=== PATIENT | female | born 1955 | race Caucasian/White ===

== ENCOUNTER 2017-01-23 04:18 | Emergency (ER) | payer OTHER ==
[~2017-01-23] VITALS: Ht 162.6 cm; Wt 65.0 kg
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
[2017-01-23 05:25] LABS: ALT (GPT) 25 U/L (10-53); ANION GAP 7 MEQ/L (5-15); AST (GOT) 23 U/L (15-37); BICARBONATE 27.9 MEQ/L (21.0-32.0); BLOOD UREA NITROGEN 10 MG/DL (7-18); CHLORIDE 110 MEQ/L (98-107); GLOMERULAR FILTRATION RATE 108 ML/MIN (>89); POTASSIUM 3.4 MEQ/L (3.5-5.1); SODIUM (NA) 145 MEQ/L (136-145)
[2017-01-23 05:27] LABS: ALKALINE PHOSPHATASE 59 U/L (45-117); TOTAL BILIRUBIN ADULT 0.3 MG/DL (0.2-1.0)
[2017-01-23 05:29] LABS: ALCOHOL 246 MG/DL (0-5)
[2017-01-23] MEDS ORDERED: POTASSIUM CHLORIDE 10 MEQ CONTROLLED RELEASE TAB PO ONE (05:45)
[2017-01-23 05:49] VITALS: BP 113/58; PULSE 72; RESP 16; TEMP 99.2; O2SAT 95
[2017-01-23 07:41] VITALS: BP 123/59; PULSE 85; RESP 18; TEMP 99.3; O2SAT 98
[2017-01-23 07:43] VITALS: BP 123/59; PULSE 85; RESP 18; TEMP 99.3; O2SAT 98
== END 2017-01-23 14:05 | disposition home or self-care (01) ==
LOC: NEPD 04:18
DX: F10.929 Alcohol use, unspecified with intoxication, unspecified (principal); E87.6 Hypokalemia; Y90.8 Blood alcohol level of 240 mg/100 ml or more; Z72.0 Tobacco use
CPT/HCPCS: 80053; 80307; 99283